=== PATIENT | male | born 1970 | race Caucasian/White ===

== ENCOUNTER 2018-10-18 14:20 | Observation (INO) | payer SELFPAY ==
[2018-10-18] MEDS ORDERED: ONDANSETRON HCL/PF 4 MG/ 2ML VIAL IVP ONE (15:29)
[2018-10-18] MEDS ORDERED: 0.9 % SODIUM CHLORIDE 1,000 ML IV ONE ×2 (15:29→16:51)
[2018-10-18 16:41] LABS: MEAN CORPUSCULAR HEMOGLOBIN 32.5 pg (28.0-34.0)
[2018-10-18 16:42] LABS: BASOPHILS % 0.5 % (0.0-1.5); EOSINOPHILS % 0.7 % (0.0-6.8); MONOCYTES % 6.7 % (0.0-11.0); NEUTROPHILS # 6.7 # k/uL (1.4-7.7)
[2018-10-18 16:43] LABS: eGFR (Non-African) > 60
[2018-10-18] MEDS ORDERED: dilTIAZem HCL 25 MG/5 ML VIAL IVP ONE (17:24)
[2018-10-18] MEDS ORDERED: APIXABAN 5 MG TABLET PO ONE (17:54)
[2018-10-18] MEDS ORDERED: 0.9 % SODIUM CHLORIDE 1,000 ML IV SCH ×2 (18:15→18:45)
[2018-10-18] MEDS ORDERED: hydrOXYzine HCL 25 MG TABLET PO PRN ×2 (18:15→18:53)
[2018-10-18] MEDS ORDERED: LORazepam 2 MG/ML VIAL IV PRN ×2 (18:19→18:53)
[2018-10-18] MEDS ORDERED: APIXABAN 2.5 MG TABLET PO ONE (18:40)
--- NOTE | 2018-10-18 18:44 | ED Physician Documentation ---
General Adult - HISTORIAN Historian: patient - HPI Stated Complaint: nausea, alcohol withdrawl Chief Complaint: General Adult Onset: days ago (1) Timing: still present Severity: mild Further Comments: yes (He states he was arrested yesterday and the police brought him here due to alcohol withdrawl. HE states he feels nauseated and shaky and drinks a 5th of vodka daily - he was in [facility] since last night not 12 hours and he was released and they did bring him to ER for treatment. He has no home to go to he states. He states his only past medical history is anxiety and HTN (he does not take his meds for this due to running out)) - ROS CONST: no problems EYES/ENT: none CVS/RESP: denies: chest pain, shortness of breath, cough GI/: nausea MS/SKIN/LYMPH: denies: rash NEURO/PSYCH: headache, dizziness - PAST HX Past History: hypertension Immunizations: UTD Allergies/Adverse Reactions: Allergies Allergy/AdvReac Type Severity Reaction Status Date / Time No Known Allergies Allergy Verified 10/18/18 18:12 - SOCIAL HX Smoking History: cigarettes Alcohol Use: none Drug Use: none - FAMILY HX Family History: No - VITAL SIGNS Vital Signs: Vital Signs Temp Pulse Resp BP Pulse Ox 98.1 F 85 22 159/98 99 10/18/18 16:45 10/18/18 18:33 10/18/18 18:33 10/18/18 18:33 10/18/18 18:33 - REVIEWED ASSESSMENTS Nursing Assessment Reviewed: Yes Vitals Reviewed: Yes Progress - Progress Progress: 1525: nausea is increasing DG 1550: states nausea is improved. HE feels shaky still. No dizziness. Denies any shortness of breath. Does state he has no home to go to and he is not sure what to do. DG 1651: states he was told in the past he had Afib - he did not feel this was medical history because he did run out of his meds for his condition and he did not ever follow up . - he denies any chest pain DG 1755: Rhythm has normalized. He states he does feel "some better" DG 1800: Discussed case with Dr Alvarado pt states he is his PCP and he will admit obs. Pt aware DG ED Results Lab/Radiology - Lab Results Lab Results: Lab Results 04/10/18/18 10/18/18 16:20 16:20 15:30 WBC 8.80 K/ul K/ul (4.00-12.00) RBC 4.39 M/ul M/ul (3.90-5.20) Hgb 14.3 g/dL g/dL (12.0-18.0) Hct 42.2 % % (37.0-53.0) MCV 96.0 fl fl (80.0-100.0) MCH 32.5 pg pg (28.0-34.0) MCHC 33.8 g/dL g/dL (30.0-36.0) RDW 12.7 % % (11.3-14.3) Plt Count 163 K/mm3 K/mm3 (130-400) Neut % (Auto) 76.3 % % (39.0-79.0) Lymph % (Auto) 15.8 % L % (16.0-50.0) Sharkey % (Auto) 6.7 % % (0.0-11.0) Eos % (Auto) 0.7 % % (0.0-6.8) Baso % (Auto) 0.5 % % (0.0-1.5) Neut # (Auto) 6.7 # k/uL # k/uL (1.4-7.7) Lymph # (Auto) 1.4 # k/uL # k/uL (0.6-4.0) Sharkey # (Auto) 0.6 # k/uL # k/uL (0.0-0.9) Eos # (Auto) 0.1 # k/uL # k/uL (0.0-0.6) Baso # (Auto) 0.0 # k/uL # k/uL (0.0-0.5) Sodium 134 mmol/L L mmol/L (137-145) Potassium 4.5 mmol/L mmol/L (3.5-5.1) Chloride 95 mmol/L L mmol/L (98-107) Carbon Dioxide 26 mmol/L mmol/L (22-30) BUN 17 mg/dL mg/dL (9-20) Creatinine 0.82 mg/dL mg/dL (0.66-1.25) Est GFR ( Amer) > 60 (60 - ) Est GFR (Non-Af Amer) > 60 (60 - ) Glucose 123 mg/dL H mg/dL (74-106) Calcium 9.4 mg/dL mg/dL (8.4-10.2) Total Bilirubin 1.1 mg/dL mg/dL (0.2-1.3) AST 77 U/L H U/L (15-46) ALT 51 U/L H U/L (0-50) Alkaline Phosphatase 101 U/L U/L (38-126) Troponin I < 0.012 ng/mL L ng/mL (0.012-0.034) Total Protein 8.0 g/dL g/dL (6.3-8.2) Albumin 4.5 g/dL g/dL (3.5-5.0) Ethyl Alcohol < 10.0 mg/dL mg/dL (0.0-10.0) - Orders Orders: ED Orders Category Date Time Status Activity as ordered D Care 10/18/18 18:10 Active Assess pulse oximetry Q4H Care 10/18/18 18:10 Active Continuous EKG monitoring Q1H Care 10/18/18 18:10 Active Do Not Give Influenza Vaccine 1T Care 10/18/18 18:10 Active Do Not Give Pneumococcal Vacci 1T Care 10/18/18 18:10 Active Document Bowel Movement Q8H Care 10/18/18 18:[address] Alvarado NOW Care 10/18/18 18:15 Ordered IV Started NOW Care 10/18/18 15:28 Active Observation-Telemetry NOW Care 10/18/18 18:15 Ordered SCD'S (Sequential Compression Devices) NOW Care 10/18/18 18:15 Ordered Vital Signs Q4 Care 10/18/18 18:10 Active Regular Diet 10/18/18 Dinner Completed Regular Diet 10/18/18 Dinner Completed CHEST 2VIEW [RAD] Stat Exams 10/18/18 Ordered ALCOHOL MEDICAL USE ONLY Stat Lab 10/18/18 16:20 Completed CBC/PLATELET/DIFF Stat Lab 10/18/18 16:20 Completed CMP Stat Lab 10/18/18 16:20 Completed TROPONIN I Stat Lab 10/18/18 15:30 Completed UA W/MICRO IF INDICATED Routine Lab 10/18/18 17:49 Ordered UDS [DRUG SCREEN URINE MEDICAL ONLY] Routine Lab 10/18/18 Ordered 0.9 % Sodium Chloride [Normal Saline] 1,000 ml Med 10/18/18 15:29 Discontinued IV NOW 0.9 % Sodium Chloride [Normal Saline] 1,000 ml Med 10/18/18 16:51 Discontinued IV NOW 0.9 % Sodium Chloride [Normal Saline] 1,000 ml Med 10/18/18 18:15 Discontinued IV Q10H Apixaban [Eliquis] Med 10/18/18 18:40 Discontinued 5 mg PO .STK-MED ONE Apixaban [Eliquis] Med 10/18/18 21:00 Discontinued 5 mg PO BID Apixaban [Eliquis] Med 10/18/18 17:54 Discontinued 5 mg PO NOW ONE LORazepam [Ativan] Med 10/18/18 18:19 Ordered 0.5 mg IV Q4H PRN Ondansetron HCl/Pf [Zofran] Med 10/18/18 15:29 Discontinued 4 mg IVP NOW ONE Sertraline HCl [Zoloft] Med 10/18/18 19:00 Discontinued 50 mg PO DAILY dilTIAZem HCL [Cardizem] Med 10/18/18 17:24 Discontinued 20 mg IVP STAT ONE hydrOXYzine HCL [Atarax] Med 10/18/18 18:15 Discontinued 25 mg PO BID PRN Resuscitation Status Routine Oth 10/18/18 Ordered EKG WITH COMPARISON Stat Ther 10/18/18 Ordered EKG WITH COMPARISON Stat Ther 10/18/18 Ordered General Adult Physical Exam - PHYSICAL EXAM GENERAL APPEARANCE: no distress EENT: eye inspection normal, pharynx normal, no signs of dehydration NECK: normal inspection RESPIRATORY: no resp distress, chest non-tender, breath sounds normal CVS: reg rate & rhythm, heart sounds normal, equal pulses ABDOMEN: soft, normal bowel sounds, no distension, non-tender BACK: normal inspection, no CVA tenderness SKIN: warm/dry, normal color EXTREMITIES: non-tender NEURO: oriented X3 Discharge Clincal Impression: A-fib Qualifiers: Atrial fibrillation type: unspecified Qualified Code(s): I48.91 - Unspecified atrial fibrillation Referrals: Dex Alvarado MD [Primary Care Provider] - Condition: Serious Decision to Admit: NO Date of Decison to Admit: 10/18/18 Decision Time: 18:00
[2018-10-18] MEDS ORDERED: SERTRALINE HCL 50 MG TABLET PO SCH ×2 (19:00)
[2018-10-18 19:23] LABS: CANNABINOIDS NEGATIVE ng/mL (< 50); METHYLENEDIOXYMETHAMPHETAMINE NEGATIVE ng/mL (<500)
[2018-10-18 19:28] VITALS: BMI 26.9
[2018-10-18] MEDS ORDERED: PANTOPRAZOLE SODIUM 40 MG TABLET.DR PO ONE (19:29)
[2018-10-18] MEDS ORDERED: MAG HYDROX/ALUMINUM HYD/SIMETH 30 ML UDC PO PRN (19:29)
[2018-10-18] MEDS: METOPROLOL TARTRATE 50 MG TABLET PO SCH (20:53)
[2018-10-18] MEDS: NICOTINE 14mg PATCH.TD24 TD SCH (20:53)
[2018-10-18] MEDS ORDERED: APIXABAN 5 MG TABLET PO SCH ×2 (21:00)
--- NOTE | 2018-10-18 21:23 | Diagnostic Imaging Report ---
CLAUDIO SCHMITZ [facility] [address] [facility] [address] [address] [place], [place]. [address] Report Submission Date: Oct 18, 2018 5:52:26 PM CDT Patient Study Name: VEENA DILLON Date: Oct 18, 2018 5:26:42 PM CDT Modality Type: DX Gender: M Description: CHEST 2VIEW : 68 Institution: [facility] Physician: CLAUDIO SCHMITZ PA and lateral chest History: Atrial fibrillation. Weakness. PA and lateral chest dated October 18, 2018 is without prior radiographs comparison. There is a calcified granuloma at the right lower lobe. There is eventration anteriorly of the right hemidiaphragm. Pulmonary vascularity is normal. There is no confluent infiltrate or pleural effusion. There is mild aortic atherosclerosis. Otherwise, the cardiomediastinal silhouette is normal. Impression: Old granulomatous disease. Eventration of the anterior right hemidiaphragm. No acute cardiopulmonary process. Electronically signed on Oct 18, 2018 5:52:26 PM CDT by: Faina SOLER
--- NOTE | 2018-10-18 21:56 | Discharge Summary ---
Discharge Summary - Discharge [facility] Admission Date: 10/18/18 (Observation) Discharge Date: 10/19/18 (Home) History of Present Illness: Patient is a 48-year-old white male who is had a history of previous atrial fibrillation approximately two years ago. Patient denied any precipitating cause at that time. Patient was recently incarcerated with an alcohol related offense. Patient was subsequently brought to the ED today for possible withdrawal symptoms. In the ED patient was found to be an atrial fibrillation again with a rapid ventricular response. Patient did not realize that he was having any palpitations or tachycardia. Patient was given IV Cardizem and subsequently converted to a normal sinus rhythm. Patient was subsequently admitted to observation care for further stabilization and treatment. Patient stated he does have some shakes but believes that his alcohol withdrawal is manageable. Patient has been to a treatment program at [facility] in July of this year. Patient was able to maintain her sobriety until approximately 10 days ago. Since that time he is been drinking approximately 1/5 of whiskey per day. Condition at Discharge: Stable Home Medications: Ambulatory Orders Medication Instructions Recorded Metoprolol Tartrate [Lopressor] 25 mg PO BID #60 tablet 10/18/18 Consultations this Visit: None Procedures this Visit: None Allergies/Adverse Reactions: Allergies Allergy/AdvReac Type Severity Reaction Status Date / Time No Known Allergies Allergy Verified 10/18/18 18:12 Patient Problems: Current Active Problems Problem Status Onset Alcohol abuse Acute Atrial fibrillation Acute Elevated LFTs Acute Essential hypertension Acute Discharge Summary: Patient was started on metoprolol to help with his blood pressure and to help maintain a normal sinus rhythm. Patient did remain in a normal sinus rhythm during her hospitalization. Patient denies any chest pain or chest pressure. Patient did have minimal alcohol withdrawal symptoms including some shakes and tremors. Patient did complain of some indigestion. Initially patient was started on eloquence. Patient is Chadvasc score is 2. Patient is currently unemployed and stated he would not be able to afford eloquence or any of the newer anticoagulants. At the talking to the patient about the risk and benefits of anticoagulation therapy was elected to put him on aspirin therapy at this time. There was some question about how frequently patient may be going in an elevator. Considering he was pretty asymptomatic with his heart on admission to the ED. Patient was educated on how to check his pulse. Patient was advised that his liver function tests a mildly elevated probably related to his alcohol dependency/abuse. This will need to be rechecked again in approximately one month.Patient was subsequently discharged home in stable condition. - Final Diagnosis (1) Atrial fibrillation Problems: Patient was encouraged to check his pulse on a regular basis. Will maintain the patient on metoprolol at this time. (2) Essential hypertension Problems: restart metoprolol and monitor (3) Alcohol abuse Problems: Talk to patient about possibility of going into rehab again. (4) Elevated LFTs Problems: patient encouraged to stop drinking and will follow this along.
[2018-10-18 22:35] LABS: APPEARANCE,URINE CLEAR (CLEAR); COLOR,URINE YELLOW (YELLOW); OCCULT BLOOD,URINE NEGATIVE (NEGATIVE); UROBILINOGEN URINE 0.2 Eu (0.2-1.0)
[2018-10-19 06:53] LABS: eGFR (Non-African) > 60
[2018-10-19] MEDS: NICOTINE 14mg PATCH.TD24 TD SCH (08:58)
[2018-10-19] MEDS: METOPROLOL TARTRATE 50 MG TABLET PO SCH (08:59)
[2018-10-19 13:57] VITALS: BP 124/81
== END 2018-10-19 14:05 | disposition home or self-care (01) ==
LOC: ED 14:20 → UNDOADMOB 18:08 → SOUTH 18:08
PROVIDERS: ADMIT Family Medicine; ATTEND Family Medicine
DX: I48.91 Unspecified atrial fibrillation (principal); I10 Essential (primary) hypertension; F10.10 Alcohol abuse, uncomplicated; R79.89 Other specified abnormal findings of blood chemistry; F41.9 Anxiety disorder, unspecified; R11.2 Nausea with vomiting, unspecified
CPT/HCPCS: 71046; 80053; 80320; 80377; 81002; 84484; 85025; 93005; G0378; J2060; J2405; J3490; J7030; 96365; 96375; 99217; 99284; G0480; G0481; S1016